=== PATIENT | female | born 1950 | race Asian ===

== ENCOUNTER 2017-06-24 07:10 | Emergency (ER) | payer MEDICARE, OTHER ==
[~2017-06-24] VITALS: Ht 147.3 cm; Wt 61.7 kg
[2017-06-24] MEDS ORDERED: AUGMENTIN 875-1 EAC1 ORAL (07:34)
[2017-06-24] MEDS ORDERED: EVISTA60 MG ORAL (07:39)
[2017-06-24] MEDS ORDERED: CRESTOR10 M2 ORAL (07:39)
[2017-06-24] MEDS ORDERED: GUAIFENESIN400 MG PO (08:22)
--- NOTE | 2017-06-24 08:31 | Emergency Room Report ---
History of Present Illness General Chief Complaint: Upper Respiratory Illness Source: Patient Present Illness HPI Patient is a 67-year-old female presented after increased cough and congestion. The patient had recently been seen by her own doctor and been started on antibiotics. Patient been taking Augmentin. She denied any fever. She reported having increased cough phlegm. She had not been having any vomiting or diarrhea. She had been having gradual onset of symptoms and had been sick for several days. Patient was noted to have some right-sided neck pain. As well as sore throat. She denied any pain with movement of the neck Allergies: Coded Allergies: No Known Allergies (Unverified , 06/24/17) Patient History Last Menstrual Period: Post Reviewed Nursing Documentation: PMH: Agreed, PSxH: Agreed Nursing Documentation-PMH Past Medical History: No Stated History Review of Systems All Other Systems: negative except mentioned in HPI Physical Exam Vital Signs Date Time Temp Pulse Resp B/P (MAP) Pulse Ox O2 Delivery O2 Flow Rate FiO2 06/24/17 07:14 98.4 83 17 143/83 83 Room Air Sp02 EP Interpretation: reviewed, normal General Appearance: normal inspection, well appearing, no apparent distress, alert, GCS 15, non-toxic Head: normocephalic, atraumatic ENT: normal ENT inspection, hearing grossly normal, normal voice, uvula midline , pharyngeal erythema - minimal Neck: normal inspection, full range of motion, supple, no bony tend Respiratory: normal inspection, lungs clear, normal breath sounds, no respiratory distress, no retraction, no wheezing Cardiovascular #1: regular rate, rhythm, no edema Gastrointestinal: normal inspection, normal bowel sounds, non tender, soft, no guarding, no hernia Genitourinary: no CVA tenderness Musculoskeletal: normal inspection, back normal, normal range of motion Neurologic: normal inspection, alert, oriented x3, responsive, 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 Differential diagnosis included but was not limited to meningitis, exudative tonsillitis, retropharyngeal abscess, epiglottitis, strep pharyngitis. Patient's benign exam and does not appear to require any laboratory testing at this time. Chest x-ray one view remission normal cardiac size without evident infiltrate or effusion. The patient given prescription for oral cough medications. She shows no respiratory distress at this time. Patient is ambulatory without assistance. The patient is advised to follow up with primary care doctor in 1-2 days. Patient is advised to return if any worsening condition or if any changes in status that are concerning. This report is dictated with [employer] outside deliverer software which may occasionally lead to discrepancies related to use of this software. EKG Diagnostic Results Rate: normal Rhythm: NSR - 73 ST Segments: no acute changes ASA given to the pt in ED: No Last Vital Signs Date Time Temp Pulse Resp B/P (MAP) Pulse Ox O2 Delivery O2 Flow Rate FiO2 06/24/17 07:14 98.4 83 17 143/83 83 Room Air Status: improved Disposition: HOME, SELF-CARE Condition: Stable Scripts Guaifenesin (GUAIFENESIN) 400 Mg Tablet 400 MG PO FOUR TIMES A DAY, #30 TAB Prov: Pete Downs 06/24/17 Referrals: NON PHYSICIAN (PCP) Patient Instructions: Upper Respiratory Infection, Adult Pete Downs Jun 24, 2017 08:31
[2017-06-24 09:02] VITALS: BP 143/83
[2017-06-24 09:03] VITALS: BP 143/83
--- NOTE | 2017-06-24 10:00 | Diagnostic Imaging Report ---
Indication: Reason For Exam: SOB Technique: XRAY Chest 1v Comparison:None Findings: The heart is enlarged. There is mild pulmonary vascular redistribution. No pleural fluid. No air space disease. Impression: Cardiomegaly with mild congestive change.
--- NOTE | 2017-06-24 19:07 | Cardiology Report ---
APPROVED REPORT EKG Measurement Heart [id number] Normal sinus rhythm Normal ECG
== END 2017-06-24 09:04 | disposition home or self-care (01) ==
LOC: EMR 07:55
DX: J06.9 Acute upper respiratory infection, unspecified (principal)
CPT/HCPCS: 71010; 86710; 93005; 99283